=== PATIENT | male | born 1990 | race Asian ===

== ENCOUNTER 2018-11-10 12:31 | Outpatient (CLI) | payer OTHER | END 2018-11-10 12:44 | disposition home or self-care (01) | LOC: LAB 12:31 | DX: Z11.3 Encounter for screening for infections with a predominantly sexual mode of transmission (principal); A56.00 Chlamydial infection of lower genitourinary tract, unspecified; Z11.4 Encounter for screening for human immunodeficiency virus [HIV] ==